=== PATIENT | male | born 1970 | race Caucasian/White ===

== ENCOUNTER 2017-01-05 17:40 | Emergency (ER) | payer OTHER ==
[~2017-01-05] VITALS: Ht 180.3 cm; Wt 61.9 kg
[2017-01-05 17:57] VITALS: TEMP 37.2; Ht 180.3 cm; Wt 61.9 kg
[2017-01-05] MEDS ORDERED: SODIUM CHLORIDE 0.9% 1000ML 1,000 ML IV STA ×2 (18:20)
--- NOTE | 2017-01-05 18:21 | EMERGENCY ROOM VISIT NOTE ---
History Report prepared by Divyaibelmira: Argenis Kearney Under the Supervision of: Dr. Cayetano Gonzalez M.D. First contact with patient: 18:07 Chief Complaint: OTHER COMPLAINT Stated Complaint: WITHDRAWL SX History of Present Illness The patient is a 46 year old male who presents to the Emergency Room with complaints of withdrawal symptoms. He was being transported by a private van service to [facility] from near [place], [place] for a history of Heroin and ETOH abuse. During the drive, the patient and the bull driver stopped at a [employer], where the patient got out to use the restroom. When he got back to the car, he started shaking and experiencing tremors. They continued on their drive, when the patient again needed to exit the vehicle. The bull driver stopped at a [employer] near [place], [place], and the patient once again got out of the van to use the restroom. When he exited, he again started shaking and experiencing more rigid tremors. The van cdl driver called EMS, and the patient was given 2 mg Ativan in incremental doses. The patient is mostly nonverbal on exam. He does respond to his first name. Nursing informed me the patient was found with a bottle of "Carisoprodol 350 mg". The bottle contained pills including a white tablet labeled "SG109" (Carisoprodol) and a capsule labeled "13988" (Hendrum). Source of History: patient, nursing staff History Limited By: AMS Onset: [employer]ER Position: other (global) Timing: constant Review of Systems See HPI for pertinent positives and negatives. A limited number of systems were reviewed due to AMS and were otherwise negative. Past Medical & Surgical Medical Problems: (1) History of ETOH abuse (2) History of heroin abuse Social History Smoking Status: Unknown if Ever Smoked Alcohol Use: heavy Drug Use: heroin Marital Status: single Housing Status: lives with family Occupation Status: unemployed Current/Historical Medications Unable to Obtain Active Prescriptions or Reported Meds Physical Exam Vital Signs Date Time Temp Pulse Resp B/P (MAP) Pulse Ox O2 Delivery O2 Flow Rate FiO2 01/06/17 00:11 78 18 114/67 96 01/05/17 19:00 98 17 113/69 97 Room Air 01/05/17 18:31 97 Room Air 01/05/17 18:03 93 01/05/17 17:57 37.2 111 24 115/73 95 Room Air Physical Exam GENERAL: The patient is awake, follows commands and is able to say his name. He is in no acute distress. HENT: Normocephalic, atraumatic. Oropharynx unremarkable. EYES: Ocular clonus. Normal conjunctiva. Sclera non-icteric. NECK: Supple. No nuchal rigidity. FROM. No JVD. RESPIRATORY: Clear to auscultation. CARDIAC: Regular rate, normal rhythm. Extremities warm and well perfused. Pulses equal. ABDOMEN: Soft, non-distended. No tenderness to palpation. No rebound or guarding. No masses. RECTAL: Deferred. MUSCULOSKELETAL: Chest examination reveals no tenderness. The back is symmetrical on inspection without obvious abnormality. There is no CVA tenderness to palpation. No joint edema. LOWER EXTREMITIES: Calves are equal size bilaterally and non-tender. No edema. No discoloration. NEURO: GCS 11. The patient is rigid. Clonus in all 4 extremities. Hyperreflexia in all 4 extremities. SKIN: Skin is dry and flushed. No rash or jaundice noted. Medical Decision & Procedures ER Provider Diagnostic Interpretation: Radiology results as stated below per my review and radiologist interpretation: HEAD WITHOUT CONTRAST (CT) CT DOSE: 537.48 mGy.cm HISTORY: Mental status change ams TECHNIQUE: Multiaxial CT images of the head were performed without the use of intravenous contrast. A dose lowering technique was utilized adhering to the principles of ALARA. Comparison: None. Findings: The paranasal sinuses and mastoid air cells are clear. The calvarium and skull base are intact. The ventricles and sulci are within normal limits. There is no mass, hematoma, midline shift, or acute infarct. Impression: No acute intracranial abnormality. The above report was generated using voice recognition software. It may contain grammatical, syntax or spelling errors. Electronically signed by: Jairo Galindo M.D. 01/05/2017 6:59 PM Laboratory Results 01/05/17 18:45 Red Blood Count 4.32, Mean Corpuscular Volume 92.6, Mean Corpuscular Hemoglobin 31.9, Mean Corpuscular Hemoglobin Concent 34.5, Mean Platelet Volume 9.7, Neutrophils (%) (Auto) 59.7, Lymphocytes (%) (Auto) 30.4, Monocytes (%) (Auto) 7.9, Eosinophils (%) (Auto) 1.4, Basophils (%) (Auto) 0.4, Neutrophils # (Auto) 3.41, Lymphocytes # (Auto) 1.73, Monocytes # (Auto) 0.45, Eosinophils # (Auto) 0.08, Basophils # (Auto) 0.02 01/05/17 18:45 Test 01/05/17 18:45 01/05/17 18:46 01/05/17 18:48 01/05/17 19:35 White Blood Count 5.70 K/uL (4.8-10.8) Red Blood Count 4.32 M/uL (4.7-6.1) Hemoglobin 13.8 g/dL (14.0-18.0) Hematocrit 40.0 % (42-52) Mean Corpuscular Volume 92.6 fL (80-100) Mean Corpuscular Hemoglobin 31.9 pg (25-34) Mean Corpuscular Hemoglobin Concent 34.5 g/dl (32-36) Platelet Count 176 K/uL (130-400) Mean Platelet Volume 9.7 fL (7.4-10.4) Neutrophils (%) (Auto) 59.7 % Lymphocytes (%) (Auto) 30.4 % Monocytes (%) (Auto) 7.9 % Eosinophils (%) (Auto) 1.4 % Basophils (%) (Auto) 0.4 % Neutrophils # (Auto) 3.41 K/uL (1.4-6.5) Lymphocytes # (Auto) 1.73 K/uL (1.2-3.4) Monocytes # (Auto) 0.45 K/uL (0.11-0.59) Eosinophils # (Auto) 0.08 K/uL (0-0.5) Basophils # (Auto) 0.02 K/uL (0-0.2) RDW Standard Deviation 44.9 fL (36.4-46.3) RDW Coefficient of Variation 13.1 % (11.5-14.5) Immature Granulocyte % (Auto) 0.2 % Immature Granulocyte # (Auto) 0.01 K/uL (0.00-0.02) Anion Gap 6.0 mmol/L (3-11) Est Creatinine Clear Calc Drug Dose 84.2 ml/min Estimated GFR () 108.8 Estimated GFR (Non- 93.9 BUN/Creatinine Ratio 18.6 (10-20) Calcium Level 8.4 mg/dl (8.5-10.1) Total Bilirubin 0.3 mg/dl (0.2-1) Direct Bilirubin 0.1 mg/dl (0-0.2) Aspartate Amino Transf (AST/SGOT) 23 U/L (15-37) Alanine Aminotransferase (ALT/SGPT) 33 U/L (12-78) Alkaline Phosphatase 105 U/L (45-117) Total Creatine Kinase 152 U/L (39-308) Total Protein 7.2 gm/dl (6.4-8.2) Albumin 3.2 gm/dl (3.4-5.0) Lipase 111 U/L (73-393) Salicylates Level 2.4 mg/dl (2.8-20) Acetaminophen Level < 2 ug/ml (10-30) Hendrum Level < 0.2 mMOL/L (0.6-1.2) Bedside Glucose 99 mg/dl (70-99) Ethyl Alcohol mg/dL < 3.0 mg/dl (0-3) Prothrombin Time 11.1 SECONDS (9.0-12.0) Prothromb Time International Ratio 1.0 (0.9-1.1) Test 01/05/17 20:01 Urine Color DK YELLOW Urine Appearance CLEAR (CLEAR) Urine pH 5.5 (4.5-7.5) Urine Specific [place] 1.034 (1.000-1.030) Urine Protein NEG (NEG) Urine Glucose (UA) NEG (NEG) Urine Ketones TRACE (NEG) Urine Occult Blood NEG (NEG) Urine Nitrite NEG (NEG) Urine Bilirubin NEG (NEG) Urine Urobilinogen NEG (NEG) Urine Leukocyte Esterase NEG (NEG) Urine Opiates Screen POS (NEG) Urine Methadone, Qualitative NEG (NEG) Urine Barbiturates NEG (NEG) Urine Phencyclidine (PCP) Level NEG (NEG) Ur Amphetamine/Methamphetamine NEG (NEG) MDMA (Ecstasy) Screen NEG (NEG) Urine Benzodiazepines Screen NEG (NEG) Urine Cocaine Metabolite POS (NEG) Urine Marijuana (THC) POS (NEG) Laboratory results reviewed by me Medications Administered Medications (Trade) Dose Ordered Sig/Kirstin Route Start Time Stop Time Status Last Admin Dose Admin Sodium Chloride 1,000 ml @ 999 mls/hr Q1H1M STAT IV 01/05/17 18:20 01/05/17 19:20 DC 01/05/17 18:20 999 MLS/HR Sodium Chloride 1,000 ml @ 999 mls/hr Q1H1M STAT IV 01/05/17 18:20 01/05/17 19:20 DC 01/05/17 19:20 999 MLS/HR ECG Indication: toxicologic Rate (beats per minute): 91 Rhythm: normal sinus Findings: no acute ischemic change, other (normal intervals, normal QRS, normal AVR) ED Course 1809: The patient was evaluated in room A6. A complete history and physical exam was performed. 0: NSS 1000 ml @ 999 mls/hr IV, NSS 1000 ml @ 999 mls/hr IV. 1829: Upon investigation, the white tablets labeled "SG109" are Carisoprodol pills, and the capsules labeled "[id number]" are Hendrum Carbonate pills. Carisoprodol will metabolize to Meprobamate, a JAVA DES[employer]ER depressant that affects spinal reflexes. 1934: Nursing informed me the patient would like to leave. 2020: I reevaluated the patient. The patient is now speaking to me and answering questions. He is agreeable to wait until I speak with Poison Control. 2031: I discussed the patients case with [facility]. There are minimal other concerns if the patients labs look normal. 2044: I reevaluated the patient. He is resting comfortably. I discussed his results and discharge instructions and he verbalized complete understanding and agreement. He is awaiting his transportation back to [facility]. 2217: Nursing informed me the patients transportation is coming to get him at 2300. Medical Decision I reviewed the patient's past medical history, medications, and the nursing notes as described above. The differential diagnoses considered include overdose of Carisoprodol, overdose of Hendrum Carbonate, overdose of unknown medication, recreational overdose, suicide attempt, intracranial hemorrhage, meningitis, alcohol withdrawal and seizure. Patient is a 46-year-old gentleman with a past history of heroin abuse patient' s emergency department after developing altered mental status with tremors and rigidity after going to the bathroom at a gas station [facility] per history of present illness. On arrival the patient was mildly rigid attempting to Bed and eventually calmed down. On my evaluation the patient was sleeping and required painful stimulus to wake up and then was able to tell me his name albeit mumbled. GCS of 11. Considering the patient's drowsy state additional Ativan was deferred. On exam the patient did have hyperreflexia, clonus in extremities, and ocular clonus, skin warm and dry toxidrome consistent with serotonin anergic but also JAVA DES[employer]ER depression in inhibition of spinal reflexes which can occur with the patient's medication of Carisoprodol. Tox workup initiated. CT head negative. EKG unremarkable with normal intervals. Chemistry also unremarkable without acidosis. Tylenol negative. Aspirin within normal limits. Labs otherwise unremarkable. Throughout the duration in the ED the patient improved dramatically conversing clearly without difficulty. Still mild tremors but clonus improved to 1-2 beats that can be physiologic. Patient requesting discharge to continue with his plan for rehabilitation. I discussed case with poison control did not have any additional concerns the patient's mental status has improved and there were no concerning findings on his tox workup. Thus, arrangements were made for the patient to be transported via the van service to his originally scheduled rehabilitation admission. Head Trauma GCS Score: 11 The patient follows commands and I am able to somewhat understand what he is saying. Medication Reconcilliation Current Medication List: was personally reviewed by me Blood Pressure Screening Patient's blood pressure: Normal blood pressure Blood pressure disposition: Did not require urgent referral Consults Time Called: 2029 Consulting Physician: [facility] Returned Call: 2031 I discussed the patients case with [facility]. There are minimal other concerns if the patients labs look normal. Impression Primary Impression: Accidental overdose Scribe Attestation The scribe's documentation has been prepared under my direction and personally reviewed by me in its entirety. I confirm that the note above accurately reflects all work, treatment, procedures, and medical decision making performed by me. Departure Information Dispostion [facility] Acute Care (The patient is being transferred to [facility]) Prescriptions Unable to Obtain Active Prescriptions or Reported Meds Patient Instructions ED Overdose Accidental, My [facility] Additional Instructions Please follow up with your primary care physician in the next 1-3 days. Your exam improved significantly during observation and your lab results, EKG, and CT scan of your head did not show signs of an emergent condition. Make sure to take only your prescribed dose of your medications. Continue with your plan for detox from heroin abuse. Return to the emergency department for worsening symptoms as described in the accompanying instructions.
[2017-01-05 18:31] VITALS: O2SAT 97
--- NOTE | 2017-01-05 19:00 | DIAGNOSTIC IMAGING REPORT ---
HEAD WITHOUT CONTRAST (CT) CT DOSE: 537.48 mGy.cm HISTORY: Mental status change ams TECHNIQUE: Multiaxial CT images of the head were performed without the use of intravenous contrast. A dose lowering technique was utilized adhering to the principles of ALARA. Comparison: None. Findings: The paranasal sinuses and mastoid air cells are clear. The calvarium and skull base are intact. The ventricles and sulci are within normal limits. There is no mass, hematoma, midline shift, or acute infarct. Impression: No acute intracranial abnormality. The above report was generated using voice recognition software. It may contain grammatical, syntax or spelling errors. Electronically signed by: Jaior Galindo M.D. 01/05/2017 6:59 PM Dictated Date/Time: 01/05/2017 6:58 PM
[2017-01-05 19:03] LABS: BASO % 0.4 %; BASO ABS # 0.02 K/uL (0-0.2); COMPLETE YES; EOS % 1.4 %; IG% 0.2 %; LYMPH % 30.4 %; LYMPH ABS # 1.73 K/uL (1.2-3.4); MEAN CELL VOLUME 92.6 fL (80-100); MEAN CORPUSCULAR HEMOGLOBIN 31.9 pg (25-34); MEAN CORPUSCULAR HGB CONC 34.5 g/dl (32-36); MEAN PLATELET VOLUME 9.7 fL (7.4-10.4); MONO % 7.9 %; NEUT % 59.7 %; PLATELET COUNT 176 K/uL (130-400); RED BLOOD COUNT 4.32 M/uL (4.7-6.1)
[2017-01-05 19:28] LABS: BUN/CREATININE RATIO 18.6 (10-20); CALCIUM 8.4 mg/dl (8.5-10.1); CREATININE 0.97 mg/dl (0.60-1.40); LITHIUM < 0.2 mMOL/L (0.6-1.2)
[2017-01-05 19:34] LABS: ACETAMINOPHEN < 2 ug/ml (10-30)
[2017-01-05 19:58] LABS: PROTHROMBIN TIME (PATIENT) 11.1 SECONDS (9.0-12.0)
[2017-01-05 20:47] LABS: BENZODIAZEPINE, URINE NEG (NEG); COCAINE,URINE POS (NEG); PHENCYCLIDINE, URINE NEG (NEG)
[2017-01-05 20:57] LABS: URINE APPEARANCE CLEAR (CLEAR); URINE BILIRUBIN NEG (NEG); URINE COLOR DK YELLOW; URINE NITRITE NEG (NEG); URINE PH 5.5 (4.5-7.5); URINE SPECIFIC GRAVITY 1.034 (1.000-1.030); UROBILINOGEN NEG (NEG)
[2017-01-05 20:58] LABS: MANUAL MICROSCOPIC REQUIRED? NO; REVIEW REQ? NO
[2017-01-06 00:11] VITALS: BP 114/67; PULSE 78; O2SAT 96
[2017-01-08 14:36] LABS: COCAINE, URINE 16800 NG/ML (CUTOFF=100); COD UR 290 NG/ML (CUTOFF=50); HYDROCOD UR NEGATIVE NG/ML (CUTOFF=50); HYDROMOR UR 350 NG/ML (CUTOFF=50); MORPHINE UR >20000 NG/ML (CUTOFF=50); NORHYDROCODONE CONF UR NEGATIVE NG/ML (CUTOFF=50); OXYMORPH UR NEGATIVE NG/ML (CUTOFF=50)
== END 2017-01-06 00:12 ==
LOC: EDBD 17:40 → C.EDA 17:44
DX: T40.1X1A Poisoning by heroin, accidental (unintentional), initial encounter (principal)